=== PATIENT | female | born 1985 | race Caucasian/White ===

== ENCOUNTER → 2020-03-23 18:13 | Outpatient (CLI) | payer BC, SELFPAY | PROVIDERS: Visit Provider Nurse Practitioner Obstetrics & Gynecology | DX: N39.0 Urinary tract infection, site not specified (principal) | CPT/HCPCS: 87086; 87088; 87186 ==

== ENCOUNTER 2023-03-21 10:54 | Outpatient (CLI) | payer BC, SELFPAY ==
--- NOTE | 2023-03-21 10:55 | CA_ITS ---
APPROVED REPORT EXAM: Comprehensive 2D, Doppler, and color-flow Echocardiogram [employer] Supervisor: Selena Mitchell RT(R) Ht: 5 ft 4 in Wt: 187lbs BSA: 1.90 BP: 122/80 mmHg Indications: SOA, murmur, palpitations, fatigue, FRY 2D Dimensions LVEF (Corbett's) 53.40 % F: 54 - 74 LV Volume 160.10 mL F: 46 - 106 LV Volume Index 84.3 mL/m2 F: 29 - 61 LA Volume 68.20 mL LA Volume Index 35.89 mL/m2 (M/F) 16-34 EF AP4 54.70 % EF AP2 54.7 % EF BP 53.4 % GL Strain -18.4 % M-Mode Dimensions RVDd 2.15 cm (0.9-2.6) LA Diam 4.56 cm (1.9-4.0) LVDd 5.69 cm (3.5-5.7) LVDs 4.15 cm (3.5-5.7) IVSd 0.72 cm (0.6-1.1) PWd 0.68 cm (0.6-1.1) EF (Teich) 52.10% FS 27.10% EDV (Teich) 159.40 mL ESV (Teich) 76.40 mL LV Diastology E Decel Time 173 (160-240 msec) E/A Ratio 1.3 Mitral Valve MV E Max Dale. 119.0 (40-130 cm/s) MV A Velocity 93.0 (40-130 cm/s) E/A Ratio 1.28 MV PHT 51.0 ms Left Ventricle The left ventricle is normal size. The left ventricular systolic function is normal. The left ventricular ejection fraction is within the normal range. Proximal septal thickening is noted. There is normal LV segmental wall motion. The left ventricular diastolic function is normal. LVEF is 55%. Right Ventricle The right ventricle is normal size. The right ventricular systolic function is normal. Atria The left atrium is mildly dilated. The right atrium is mildly dilated. There is no Doppler evidence of interatrial shunt. Aortic Valve The aortic valve opens well. There is no aortic valvular stenosis. Mild aortic regurgitation. Mitral Valve The mitral valve leaflets are mildly thickened. No evidence of mitral valve stenosis. Mild mitral regurgitation. Tricuspid Valve The tricuspid valve leaflets are thin and pliable. Trace tricuspid regurgitation. RVSP is normal. Pulmonic Valve The pulmonary valve is normal in structure. Trace pulmonic regurgitation. Great Vessels The aortic root is normal in size. The ascending aorta is normal in size. The IVC is not well-visualized. Pericardium There is no pericardial effusion. Other Information Study Quality: Fair Conclusion Normal biventricular systolic function. Mild biatrial dilation. Mild AI, mild MR Electronically signed by : Gladis Dyer MD 03/21/2023 16:18:09
--- NOTE | 2023-03-21 14:49 | XR_ITS ---
FINAL REPORT CLINICAL HISTORY: IRON DEFICIENCY FINDINGS: Two views of the chest were obtained. The heart size and pulmonary vascularity are within normal limits. The mediastinum is normal. There is a retrocardiac mass favored to represent a large hiatal hernia. Otherwise, there is no acute pulmonary abnormality. There is no pneumothorax. The bony thorax is intact. IMPRESSION: Retrocardiac mass is favored to represent a large hiatal hernia. Consider CT for further evaluation. Reviewed, Interpreted and Dictated by Gordon Jeff III, MD Transcribed by Carleen Monteiro Authenticated and . [facility]
== END 2023-03-21 23:59 ==
PROVIDERS: PCP Physician Assistant; Visit Provider Physician Assistant
DX: R01.1 Cardiac murmur, unspecified (principal); D50.9 Iron deficiency anemia, unspecified
CPT/HCPCS: 71046; 93306

== ENCOUNTER 2023-03-21 11:12 | Outpatient (CLI) | payer BC, SELFPAY ==
[2023-03-21 11:25] LABS: Alanine Aminotransferase 18 U/L (12-78); Albumin/Globulin Ratio 1.5 (1.1-1.8); Alkaline Phosphatase 60 U/L (38-126); Anion Gap 14.1 mEq/L (5-15); Aspartate Amino Transferase 26 U/L (14-36); Bilirubin,Total 1.3 mg/dl (0.2-1.3); Blood Urea Nitrogen 8 mg/dl (7-17); Calcium 8.8 mg/dl (8.4-10.2); Carbon Dioxide 19 mmol/L (22.0-30.0); Chloride 112 mmol/L (98-107); Chol/HDL Ratio 2.1 (1-3.5); Cholesterol 112 mg/dl (140-200); Estimated Glomerular Filt Rate 95 ml/min (>60); GFR (African American) 115 ML/MIN (>60); Globulin 2.6 g/dL (1.3-3.2); Glucose 95 mg/dl (74-100); HDL Cholesterol 53 mg/dl (40-60); Potassium 4.1 mmoL/L (3.5-5.1); Sodium 141 mmol/L (136-145); Total Protein,Serum 6.6 g/dl (6.3-8.2); Triglycerides 53 mg/dl (30-150); VLDL Cholesterol 11 mg/dL (0-40)
[2023-03-21 11:36] LABS: Basophils % 0.8 % (0.1-2.0); Eosinophils # 0.1 K/mm3 (0.0-0.4); Eosinophils % 2.5 % (0.1-12.0); Hematocrit 34.6 % (37.0-47.0); Hemoglobin 11.3 g/dL (12.2-16.2); Lymphocytes # 0.6 K/mm3 (0.7-4.5); Lymphocytes % 28.5 % (10-50); Mean Corpuscular HGB Conc 32.8 g/dL (31.8-35.4); Mean Corpuscular Hemoglobin 28.6 pg (27.0-31.2); Mean Corpuscular Volume 87.1 fl (81-99); Monocytes # 0.1 K/mm3 (0.1-1.0); Neutrophils # 1.3 K/mm3 (1.8-7.8); Neutrophils % 62.2 % (37.0-80.0); Red Blood Count 3.97 M/mm3 (4.20-5.40); Red Cell Distribution Width 16.5 % (11.5-17.5)
[2023-03-21 11:43] LABS: Platelet Count 30 K/mm3 (142-424)
[2023-03-21 11:45] LABS: 25-OH Vitamin D, Total 17.3 ng/mL (30-100)
[2023-03-21 12:00] LABS: Thyroid Stimulating Hormone 4.78 uIU/mL (0.465-4.68)
[2023-03-21 14:43] LABS: Reticulocyte % (Auto) 2.4 % (0.9-3.2)
[2023-03-21 16:11] LABS: Lactate Dehydrogenase 174 U/L (313-618)
[2023-03-21 17:19] LABS: Vitamin B12 271 pg/mL (239-931)
[2023-03-21 17:46] LABS: Iron 44 ug/dL (37-170)
[2023-03-21 17:56] LABS: Total Iron Binding Capacity 416 ug/dL (265-497)
[2023-03-21 18:22] LABS: Ferritin 9.23 ng/ml (6.24-137)
[2023-03-23 12:35] LABS: Peripheral Smear Review Scanned Result
== END 2023-03-21 23:59 ==
LOC: LAB.DROPOF 11:12
PROVIDERS: Internal Medicine Medical Oncology; PCP Physician Assistant; Visit Provider Physician Assistant
DX: R06.02 Shortness of breath (principal); R06.09 Other forms of dyspnea; R53.83 Other fatigue; D69.6 Thrombocytopenia, unspecified; D61.818 Other pancytopenia; R68.3 Clubbing of fingers; R01.1 Cardiac murmur, unspecified; E55.9 Vitamin D deficiency, unspecified
CPT/HCPCS: 36415; 80053; 80061; 82306; 82607; 82728; 82746; 83540; 83550; 83615; 84443; 85025; 85044; 86880

== ENCOUNTER 2023-03-22 13:41 | Outpatient (CLI) | payer BC, SELFPAY ==
--- NOTE | 2023-03-22 13:50 | CT_ITS ---
FINAL REPORT CLINICAL HISTORY: PULMONARY MASS,SOA FINDINGS: Thin section axial CT images of the chest were obtained with contrast. 3D reformatted images were also obtained. This study was performed with techniques to keep radiation doses as low as reasonably achievable (ALARA). Individualized dose reduction techniques using automated exposure control or adjustment of mA and/or kV according to the patient's size were employed. There is no evidence of pulmonary embolism. There is no evidence of thoracic aortic aneurysm or dissection. There are lobular masses in the middle mediastinum and medial left thorax measuring up to 40 mm, likely bulky adenopathy. No suspicious pulmonary mass is identified. Limited images of the upper abdomen reveal partially imaged severe splenomegaly. There is upper abdomen adenopathy. Multiple collateral veins are seen in the upper abdomen. IMPRESSION: No evidence of pulmonary embolism. Bulky mediastinal and upper abdomen adenopathy with severe splenomegaly most worrisome for lymphoma. Reviewed, Interpreted and Dictated by Gordon Jeff III, MD Transcribed by Grace Rasheed Authenticated and [facility]
[2023-03-22] MEDS: IOPAMIDOL-370 (76%);100ML BOTTLE 75 ML IV (14:22)
[2023-03-22] MEDS: 0.9 % SODIUM CHLORIDE 50 ML VIAL IV (14:22)
[2023-03-22] MEDS: SODIUM CHLORIDE 0.9% 10ML SYR (RAD ONLY) 10 ML IV (14:22)
== END 2023-03-22 23:59 ==
LOC: RAD 13:41
PROVIDERS: PCP Physician Assistant; Visit Provider Internal Medicine Medical Oncology
DX: R06.02 Shortness of breath (principal); R91.8 Other nonspecific abnormal finding of lung field
CPT/HCPCS: 71275; Q9967